=== PATIENT | male | born 2000 | race Caucasian/White ===

== ENCOUNTER 2022-03-27 21:14 | Emergency (ER) | payer SELFPAY ==
[2022-03-27 21:27] VITALS: BP 127/82; PULSE 74; RESP 16; TEMP 36.8; O2SAT 99; BMI 23.0
--- NOTE | 2022-03-27 22:04 | ED_ITS ---
HPI - Extremity Problem General: Chief complaint: Extremity Injury, Upper Stated complaint: Right Arm Pain Time Seen by Provider: 03/27/22 21:45 Source: patient Mode of arrival: ambulatory Limitations: no limitations History of Present Illness: Patient is a nice 21-year-old male who presents to ED today with a complaint of some redness and swelling as well as some nonspecific nodules involving the dorsum of his right hand and wrist. Patient states he initially noticed a small nodule to the dorsum of his right hand 3 days ago. He states since then he has developed another nodule more proximally to his distal dorsal forearm. He states he began noticing some swelling, erythema, and warmth to the dorsum of the hand as well. He is not having any decreased or painful range of motion of the wrist or digits. He has not had any known injury or trauma. No puncture wounds, lacerations, abrasions, bug bites, etc. MD Complaint: extremity pain Onset (ago): day(s) (3d) Location: right and upper extremity Radiation: none Relieving factors: nothing Exacerbating factors: nothing Associated symptoms: Reports no associated symptoms; Deny chest pain or fever(s) Review of Systems Const: Denies: fever(s), chills, body aches, fatigue or malaise Card: Denies: chest pain Resp: Denies: dyspnea GI: Denies: abdominal pain Musc: Reports: extremity pain and extremity swelling; Denies: neck pain or back pain Neuro: Denies: headache(s), numbness in extremities, weakness in extremities or sensory changes Physical Exam Const: COMMON NORMALS: no acute distress, average body habitus, patient oriented x3, no limitations, healthy appearing, alert and well nourished Lymph: LYMPHATIC: no lymphadenopathy noted Resp: COMMON NORMALS: normal respiratory effort and clear to auscultation bilaterally AUSCULTATION: clear to auscultation bilaterally Cardio: COMMON NORMALS: regular rate and regular rhythm RATE: regular rate RHYTHM: regular rhythm Extremity: COMMON NORMALS: full ROM and capillary refill normal GENERAL: Yes normal exam except as noted RIGHT UPPER EXTREMITY: Yes lower arm, Yes wrist and Yes hand & digits OTHER: Patient has a small 1 cm nodule to the distal dorsal forearm. Nodule does not appear as an abscess. There is no fluctuance. It is slightly mobile. He has another similar nodule to the dorsum of the right hand-again this clinically does not appear like an abscess. He has some mild erythema and warmth affecting just the dorsum of the hand. He maintains full painless range of motion of all digits. There are no abrasions, puncture cheung, or any other obvious bacterial entry points. He has no lymphangitic streaking. Swelling and erythema does not affect the digits at all. No palmar or volar involvement. Neuro: COMMON NORMALS: patient oriented x3 SENSORIUM/ORIENTATION: Yes alert Course Vital Signs: Vital signs: Vital Signs Temperature 98.2 F 03/27/22 21:27 Pulse Rate 74 03/27/22 21:27 Respiratory Rate 16 03/27/22 21:27 Blood Pressure 127/82 03/27/22 21:27 Pulse Oximetry 99 03/27/22 21:27 Oxygen Delivery Me thod 03/27/22 21:27 MDM - Extremity (Nontraumatic) Medical Decision Making Redness and warmth raising the concern for a possible cellulitis. Nodules do not appear as abscesses. They almost appear more like a ganglion cyst but this would be unlikely given the acute onset of multiple nodules. They do not appear fungal. His vital signs are stable. No evidence for deep space hand infection. At this point we will go ahead and cover for cellulitis and place the patient on Bactrim. I would like him to have follow-up in 2 to 3 days for re- evaluation. Patient was given instructions on return to the emergency department for worsening symptoms. Discharge Plan Discharge Patient Disposition: Home Clinical Impression: Cellulitis of right hand Condition: Stable Prescriptions: New Bactrim DS 800-160 mg tablet 1 tab PO BID 7 Days Qty: 14 0RF Discharge Orders: Discharge ED (Routine); Ordered 03/27/22 Ordered By: Sri Evangelista Activity Restrictions/Additional Instructions: As we discussed you need to fill your antibiotics tomorrow and start them immediately. You need to return to the emergency department in 48 hours if redness and swelling continues to worsen. You need to return sooner if the redness and swelling begins streaking or tracking up your arm, if you begin noticing significantly worse redness/heat/swelling, worsening pain, fevers, or any other concerns you may have. Otherwise please follow-up with your primary care provider this week for reevaluation. Coding Level of Care Code ED [employer] Attendant for Poncho Sigala
[2022-03-27] MEDS: sulfamethoxazole-trimeth DS 160-800 mg Tablet 2 TAB PO (22:21)
== END 2022-03-27 22:30 | disposition home or self-care (01) ==
PROVIDERS: Emergency Provider Physician Assistant
DX: L03.113 Cellulitis of right upper limb (principal)
CPT/HCPCS: 99283